=== PATIENT | female | born 1985 | race Caucasian/White ===

== ENCOUNTER 2022-11-25 18:12 | Outpatient (CLI) | payer OTHER, SELFPAY ==
--- NOTE | 2022-11-25 23:20 | PM.OBTRLD ---
Visit Information Visit Information Date of evaluation: 11/25/22 On-call OB Provider: Monae Cowan Reason for Evaluation: Yes non-stress test Comments/Additional reasons for admission: Patient fell to her knees and then fell to her abdomen wall playing pickleball. EDC 02/02 at 30 weeks 1 day visiting from out of town. Vital Signs Vital Signs: Blood pressure 113/62, pulse 70, temperature 98.4? Review of Systems Review of Systems Narrative: Patient denies any bleeding, leakage of fluid, fevers. Patient is feeling the baby move. No significant abdominal tenderness. She was having some slight cramping which is since resolved. Evaluation Evaluation Baseline heart rate: 135 Variability: Moderate (11-25) monitor accelerations: Present Monitor Decelerations: Absent Contraction Frequency (minutes): 0 Category of Tracing: Reactive Diagnosis, Plan/Disposition Final Diagnosis (1) Blunt abdominal trauma: Status: Acute (2) 30 weeks gestation of : Status: Acute Plan/Disposition Plan: Patient with blunt trauma to the abdomen from fall. No evidence of complications to . Precautions reviewed with the patient to return immediately if she noticed vaginal bleeding, leakage of fluid, contractions or increasing abdominal pain, decreased movement. Otherwise patient is to follow-up with her normal OB provider OB Disposition: home
== END 2022-11-25 19:25 | disposition home or self-care (01) ==
LOC: OB 11-30 08:59
PROVIDERS: Referring Provider Specialist; Visit Provider Specialist
DX: O26.893 Other specified pregnancy related conditions, third trimester (principal); S39.81XA Other specified injuries of abdomen, initial encounter; W18.30XA Fall on same level, unspecified, initial encounter; Z3A.30 30 weeks gestation of pregnancy
CPT/HCPCS: 59025; G0378; G0379